=== PATIENT | female | born 1940 | race Caucasian/White ===

== ENCOUNTER 2023-01-17 08:18 | Emergency (ER) | payer MEDICARE, OTHER, SELFPAY ==
[2023-01-17 08:19] VITALS: BP 167/99; PULSE 74; RESP 14; TEMP 36.1; O2SAT 100; BMI 24.9
--- NOTE | 2023-01-17 08:28 | RAD_ITS ---
STUDY: X-RAY - RIGHT SHOULDER REASON FOR EXAM: Female, 83 years old. Shoulder pain following trauma. TECHNIQUE: 4 view(s) of the shoulder. COMPARISON: None. FINDINGS: Normal glenohumeral articulation. There is widening of the AC joint, with displacement of the clavicle, consistent with a Type III acromioclavicular joint separation. Normal acromion. Normal humeral head and visualized proximal humerus. The soft tissue structures are unremarkable. Normal visualized pulmonary apex. RAD/Shoulder min 2 Views IMPRESSION: Type III AC joint separation. Electronically Signed: Dustin Mercado MD at 8:57 EDT ,
--- NOTE | 2023-01-17 08:28 | EDS_ITS ---
HPI History of Present Illness Chief Complaint: Upper Extremity Injury Informant: patient Narrative Narrative: Patient presents with right shoulder pain. Patient was watering some lundy and plants in her garden this morning. She walked twist up to hose when she was done. She states she slipped because of the morning do. She will and and hit her right shoulder. Nothing else hurts. She got herself up and came in. She never hit her head. She is on no ant icoagulation and in fact she is on no medicines. She is very healthy. This was a mechanical slip and fall. This was not syncope. Her only complaint is the right shoulder. It is better with rest and worse with motion. No distal numbness or tingling. PFSH PFSH Allergy/AdvReac Type Severity Reaction Status Date / Time No Known Allergies Allergy Unverified 01/17/23 08:18 Social History Smoking Status: Never smoker ROS ROS ED Eyes Eyes: Denies change in vision Cardiovascular Cardiovascular: Denies chest pain Respiratory/Chest Respiratory/Chest: Denies dyspnea Gastrointestinal Gastrointestinal: Denies nausea or vomiting Musculoskeletal Musculoskeletal: Reports other Details: See history of present illness ; Denies back pain or neck pain Integumentary Denies Abrasions Neurologic Neurologic: Denies paresthesias or weakness Hematologic/Lymphatic Hematologic/Lymphatic: Denies easy bleeding or easy bruising EXAM Physical Exam Narrative Exam Narrative: Patient is awake alert no acute distress sitting comfortably in bed. HEENT shows no sign of trauma at all mucous membranes are moist. Neck is supple has free range of motion and no tenderness Lungs are clear bilaterally no pain with a deep breath. Heart is regular I hear no murmur. Abdomen is soft. Extremities show no obvious deformity. She has some mild tenderness at the proximal humerus over the deltoid. No tenderness further down the arm elbow forearm wrist or hand. Clavicle is nontender. No visible bruising or skin changes at this time. Const Vital Signs: 01/17/23 08:19 Temperature 97 F L Temperature Source Temporal Pulse Rate 74 Respiratory Rate 14 Blood Pressure 167/99 H Blood Pressure Mean 121 Pulse Ox 100 Oxygen Delivery Method Room Air MDM MDM MDM Narrative Medical decision making narrative: Independent interpretation the patient's 4 view x-ray of the right shoulder does appear to show AC separate there is no dislocation of the actual shoulder. There is no fracture seen. Final reading is similar. I explained this to the patient. She will use ice rest and [id number] meds. I think a sling would actually promote more stiffness and problems than it would benefit. She is okay with this plan. We discussed reasons to return and follow-up as needed. Discharge Plan Triage Chief Complaint: Upper Extremity Injury ED Provider: Mahad Rock Dx/Rx/DC Orders Clinical Impression: Fall from slipping, Separation of right acromioclavicular joint, Skin tear of right elbow without complication Instructions: Treatment for Shoulder Separation Primary Care Provider: Susan Lloyd Referrals: Nathan Mcelroy MD [Med Staff - Active Staff] - 10-14 Days if not better Disposition Disposition: Home, Self Care
[2023-01-17 10:18] VITALS: RESP 16
== END 2023-01-17 10:34 | disposition home or self-care (01) ==
PROVIDERS: Emergency Provider Emergency Medicine; PCP Internal Medicine; Visit Provider Emergency Medicine
DX: S43.101A Unspecified dislocation of right acromioclavicular joint, initial encounter (principal); S51.011A Laceration without foreign body of right elbow, initial encounter; W01.0XXA Fall on same level from slipping, tripping and stumbling without subsequent striking against object, initial encounter
CPT/HCPCS: 73030; 99282

== ENCOUNTER 2023-08-24 11:03 | Emergency (ER) | payer MEDICARE, OTHER, SELFPAY ==
[2023-08-24 11:03] VITALS: BP 172/91; PULSE 82; RESP 16; TEMP 36.4; O2SAT 99; BMI 24.7
--- NOTE | 2023-08-24 11:18 | EKG12_ITS ---
Test Reason : CP Blood Pressure : / mmHG Vent. Rate : 072 BPM Atrial Rate : 072 BPM P-R Int : 128 ms QRS Dur : 074 ms QT Int : 400 ms P-R-T Axes : 051 -08 026 degrees QTc Int : 438 ms Normal sinus rhythm Minimal voltage criteria for LVH, may be normal variant ( R in aVL ) Borderline ECG Confirmed by FELICIANO MARIA, CHAVA ([id number]), supervising editor trailer QUOC CANO ([id number]) on 08/26/2023 8:41:38 AM Referred By: NATANAEL/CHIN Confirmed By:CHAVA WIGGINS MD
--- NOTE | 2023-08-24 11:18 | ED.VIS.CHEST ---
HPI History of Present Illness Chief Complaint: Chest Pain Detail of Chief Complaint: Chest pain Informant: patient Narrative Narrative: Patient presents to the emergency department with complaint of chest pain that started around 630 this morning. Patient had gotten up to use the restroom when she noticed what she describes as a pressure in her left chest that may be radiates to her back. Denies radiation to the arm or neck or jaw. She denies shortness of breath. She also states she has had intermittent discomfort lasting short periods of time over the last 2 days. Discomfort does not seem to come on with activity or exertion as she was able to walk 2-1/2 miles yesterday without difficulty. Patient has no heart history. She has no medical problems. Denies family history of heart disease. Patient denies recent travel or surgery. No history of PE or DVT. Currently rates her pain a 4 out of 10. PFSH PFSH Allergy/AdvReac Type Severity Reaction Status Date / Time No Known Allergies Allergy Verified 08/24/23 11:03 Social History Smoking Status: Never smoker ROS ROS ED Review of Systems ROS Unobtainable: other Constitutional Constitutional ED: Reports lethargy; Denies chills, fever(s), sweats or weight loss Eyes Eyes: Denies blurry vision, change in vision or diplopia ENT ENT ED: Denies rhinorrhea or sore throat Cardiovascular Cardiovascular: Reports chest pain; Denies orthopnea or racing heartbeat Respiratory/Chest Respiratory/Chest: Denies cough, dyspnea, dyspnea on exertion, orthopnea or sputum Gastrointestinal Gastrointestinal: Denies abdominal pain, diarrhea, nausea or vomiting Genitourinary Genitourinary ED: Denies dysuria, hematuria or urinary frequency Musculoskeletal Musculoskeletal: Denies arthralgias, back pain, myalgias or neck pain Integumentary Denies abscess, Abrasions or rash Neurologic Neurologic: Denies headache(s) or weakness Psychiatric Psychiatric: Denies anxiety, depression or suicidal thoughts Endocrine Endocrinology: Denies polydipsia, polyphagia or polyuria Hematologic/Lymphatic Hematologic/Lymphatic: Denies easy bleeding, easy bruising or lymphadenopathy Allergic/Immunologic Allergic/Immunologic ED: Denies mouth swelling, tongue swelling or urticaria EXAM Physical Exam Const Vital Signs: 08/24/23 11:03 08/24/23 13:07 08/24/23 13:07 Temperature 97.6 F L Temperature Source Temporal Pulse Rate 82 72 Respiratory Rate 16 Blood Pressure 172/91 H 164/81 H Blood Pressure Mean 118 108 Pulse Ox 99 Oxygen Delivery Method Room Air Room Air Positive well nourished and well developed General Appearance ED: well developed and NAD HEENT Reports TM's clear and moist mucous membranes normocephalic and atraumatic; Negative for trauma or tenderness Tympanic Membrane ED: Yes TM's clear Eyes PERRL and EOMs intact bilaterally General Eye ED: Negative for pale conjunctiva or scleral icterus Neck no lymphadenopathy, supple and no JVD General: Negative for tenderness Chest Wall inspection of chest normal and palpation of chest normal Chest: Negative for tenderness Resp normal respiratory effort and clear to auscultation bilaterally Effort and Inspection: Negative for respiratory distress or pain with movement Auscultation: Negative for rhonchi, wheezes or diminished lung sounds Cardio regular rate, regular rhythm, S1 normal heart sound, S2 normal heart sound and no murmurs Peripheral Pulses: pulses 2+ throughout GI normal to inspection, nondistended, normoactive bowel sounds, soft to palpation, non-tender, non-distended and no masses Back/Spine no CVA tenderness and no thoracic nor lumbar tenderness Extremity normal to inspection General Extremety ED: Negative for edema General Extremity: Negative for edema Neuro oriented x3, CN's II-XII intact bilaterally, no sensory deficits noted and gait normal Sensorium / Orientation: awake, alert, oriented to person, oriented to place and oriented to time Motor Exam: strength 5/5 throughout and strength abnormal Psych mental status grossly normal Skin no rashes or lesions noted and no wounds Heart Score History: Moderately Suspicious ECG: Normal Age: >/= 65 years Risk Factors: No Risk Factors Troponin: </= Normal Limit Score: 3 MDM MDM MDM Narrative Medical decision making narrative: Patient presents with chest discomfort. In the differential would be acute coronary syndrome versus PE or pneumothorax or GI cause. She denies GERD symptoms. IV line will be established. EKG obtained showed a sinus rhythm with a rate of 72 bpm with no acute ST segment changes. Patient will receive aspirin and will give nitroglycerin sublingual tablets. CBC with differential obtained for white count 5.9 with hemoglobin 13.9 and platelet count of 227. Chemistries unremarkable. D-dimer was normal at less than 0.27. First troponin was normal at 5. Delta troponin normal at 6. Heart score was a 3. Had a long discussion with patient and her family members regarding next steps. She is currently pain-free before she was even given any nitro. Discussed admission for stress testing given her age. She preferred to just have the delta troponin and given that she is pain-free to go home. Also reassuring is that she was able to walk 2-1/2 miles yesterday without any pain or discomfort and she is considered low risk for acute coronary syndrome at this time. She is advised to return if increasing pain, exertional dyspnea, or condition should worsen anyway. Lab Data Attestation: I reviewed the patient's lab results. Labs: Laboratory Results - last 24 hr 08/24/23 08/24/23 11:30 13:45 WBC 5.9 RBC 4.97 Hgb 13.9 Hct 43.8 MCV 88.1 MCH 28.0 MCHC 31.7 L RDW Std Deviation 46.5 H RDW Coeff of Ingrid 14.4 Plt Count 227 MPV 9.3 Immature Gran % (Auto) 0.200 Neut % (Auto) 54.3 Lymph % (Auto) 38.9 Morrison % (Auto) 5.6 Eos % (Auto) 0.7 Baso % (Auto) 0.3 Absolute Neuts (auto) 3.2 Absolute Lymphs (auto) 2.30 Nucleated RBC % 0 D-Dimer Quant (PE/DVT) < 0.27 L Sodium 142 Potassium 4.5 Chloride 111 H Carbon Dioxide 28.0 Anion Gap 3 L BUN 19 H Creatinine 1.08 H Estim Creat Clear Calc 31.50 Est GFR (MDRD) Af Amer 62 Est GFR (MDRD) Non-Af 51 L BUN/Creatinine Ratio 17.6 Glucose 99 Calcium 9.0 Troponin I High Sens 5 6 Radiography Diagnostic Testing: Clinical Impression(s) from Imaging Studies Chest X-Ray 08/24/23 11:45 IMPRESSION: Mild upper lobe opacities, which may be secondary to scarring or inflammation. Recommend follow-up. Electronically Signed: Mary Dozier MD at 12:05 EST Reading Location ID and State: [facility] / [place] Tel , Service support , 1 view chest x-ray obtained interpreted by myself as no evidence of infiltrate or pneumothorax or acute disease process. Radiology in agreement. EKG Initial EKG: Attestation: I personally reviewed and interpreted this EKG as follows: Comments: Sinus rhythm with rate 72 bpm with no acute ST segment changes Discharge Plan Triage Chief Complaint: Chest Pain ED Provider: Annabelle Romo Dx/Rx/DC Orders Clinical Impression: Chest pain Instructions: ED Chest Pain, Uncertain Cause Primary Care Provider: Susan Lloyd Referrals: Susan Lloyd MD [Primary Care Provider] - 3-5 Days Disposition Disposition: Home, Self Care Discharge Date/Time: 08/24/23 14:44
--- NOTE | 2023-08-24 11:24 | NURSING ---
NO OLD EKGS
--- NOTE | 2023-08-24 11:26 | NURSING ---
NO OLD EKGS
--- OUTSIDE RECORDS SUMMARY | 2023-08-24 11:31 | XMS RPT_ITS | CCD ---
Author Name Unknown Address [address] [place] [address] Organization [facility] Care Team Providers Care Patient Support Representative Name Role Phone Dilshad Lloyd MD Primary Care Provider DILSHAD LLOYD Primary Care Unavailable DILSHAD LLOYD Attending Unavailable MATHEW US Attending Unavail able DILSHAD LLOYD Primary Care Unavailable MATHEW US Referring Unavail able DILSHAD LLOYD Primary Care Unavailable Medications Completed/Discontinued Medications Medication Drug Class(es) Dates Sig (Normalized) Sig (Original) ascorbic acid 1000 mg oral tablet (6 sources) Vitamin C Start: 12-05-2005 VITAMIN C 1,000 MG TAB Take one(1) tablet daily. 0 12/05/2005 Active Problems Active Problems Problem Classification Problem Date Documented Da te Episodic/Chronic Immunizations and screening for infectious disease (4 sources) Patient encounter status; Translations: [Encounter for immunization] Episodic Past or Other Problems Problem Classification Problem Date Documented Da te Episodic/Chronic Other non-epithelial cancer of skin (6 sources) History of malignant basal cell neoplasm of skin; Translations: [Personal history of other malignant neoplasm of skin] Onset: 07-23-2014 08-14-2021 Episodic Other screening for suspected conditions (not mental disorders or infectious disease) (1 source) Encounter for screening mammogram for malignant neoplasm of breast; Translations: [Encounter for screening mammogram for malignant neoplasm of breast] Onset: 11-20-2022 Episodic Results Test Name Value Interpretation Reference Range Facil ity Vital Signs Date Time Vital Sign Value Performing Clinician Faci lity 11-20-2022 10:44-0400 Body height 161.3 cm Mathew Dominique MD Work Phone: [facility] 11-20-2022 10:44-0400 Body weight 63.91 kg Mathew Dominique MD Work Phone: [facility] 11-20-2022 10:44-0400 Diastolic blood pressure 70 mm[Hg] Mathew Dominique MD Work Phone: [facility] 11-20-2022 10:44-0400 Systolic blood pressure 110 mm[Hg] Mathew Dominique MD Work Phone: [facility] 06-18-2022 09:44-0400 Body height 158 cm Dilshad Lloyd MD Work Phone: [facility] 06-18-2022 09:44-0400 Body weight 63.5 kg Dilshad Lloyd MD Work Phone: [facility] 06-18-2022 09:44-0400 Diastolic blood pressure 82 mm[Hg] Dilshad Lloyd MD Work Phone: [facility] 06-18-2022 09:44-0400 Heart rate 79 /min Dilshad Lloyd MD Work Phone: [facility] 06-18-2022 09:44-0400 SaO2% (BldA) [Mass fraction] 97 % Dilshad Lloyd MD Work Phone: [facility] 06-18-2022 09:44-0400 Systolic blood pressure 124 mm[Hg] Dilshad Lloyd MD Work Phone: [facility] Encounters Encounter Date Encounter Type Care Provider Facility Start: 06-25-2023 End: 06-25-2023 ambulatory DILSHAD LLOYD Facility:[facility] Start: 11-20-2022 End: 11-20-2022 ambulatory Mathew Dominique MD Work Phone: OB/Gynecology Procedures Date Procedure Procedure Detail Performing Clinician Start: 11-20-2022 Screening mammograph y bi 2-view breast inc cad Mathew Dominique MD Work Phone: Start: 06-18-2022 INFLUENZA SEASONAL QUADRIVALENT HIGH DOSE AGE 65+ Dilshad Lloyd MD Work Phone: Plan of Treatment Date Care Activity Detail Author Start: 02-02-2032 Urine microalbumin profile [facility] Start: 05-28-2023 DIABETES SCREEN [facility]EN [facility] Start: 05-28-2023 Diabetes Screening Diabetes Screenin g [facility] Start: 04-19-2023 Covid-19 Vaccine () Covid-19 Vaccine () [facility] Start: 04-19-2023 Influenza vaccination Influenza Vacc ine (#1) [facility] Start: 08-19-2022 ADVANCE DIRECTIVE DISCUSSION ADVANCE DIRECTIVE DISCUSSION [facility] Start: 08-19-2022 DEPRESSION ASSESSMENT DEPRESSION ASS ESSMENT [facility] Start: 08-06-2022 COVID-19 VACCINE (5 - Booster for Pfizer series) COVID-19 VACCINE (5 - Booster for Pfizer series) [facility] Immunizations Immunization Date Immunization Notes Care Provider Fa cility 06-18-2022 influenza, high-dose , quadrivalent vaccine (FLUZONE HIGH DOSE QUADRIVALENT) Dilshad Lloyd MD Work Phone: [facility] 06-18-2022 influenza virus vacc ine, unspecified formulation Screen Wstr [facility] 05-31-2022 zoster vaccine recombinant Dilshad Lloyd MD Work Phone: [facility] Work Phone: 03-27-2022 zoster vaccine recombinant Dilshad Lloyd MD Work Phone: [facility] Work Phone: 02-01-2022 tetanus toxoid, redu kal diphtheria toxoid, and acellular pertussis vaccine, adsorbed Dilshad Lloyd MD Work Phone: [facility] 06-14-2021 influenza, high-dose , quadrivalent vaccine (FLUZONE HIGH DOSE QUADRIVALENT) Dilshad Lloyd MD Work Phone: [facility] 05-26-2019 influenza, high dose seasonal, preservative-free Dilshad Lloyd MD Work Phone: [facility] Work Phone: 05-19-2018 influenza, high dose seasonal, preservative-free Dilshad Lloyd MD Work Phone: [facility] Work Phone: 05-19-2018 pneumococcal conjuga te vaccine, 13 valent Dilshad Lloyd MD Work Phone: [facility] Work Phone: 05-19-2018 Seasonal trivalent influenza vaccine, adjuvanted, preservative free Dilshad Lloyd MD Work Phone: [facility] Work Phone: 07-08-2017 influenza, high dose seasonal, preservative-free Dilshad Lloyd MD Work Phone: [facility] 06-14-2016 influenza, high dose seasonal, preservative-free Dilshad Lloyd MD Work Phone: [facility] Work Phone: 06-09-2015 influenza, high dose seasonal, preservative-free Dilshad Lloyd MD Work Phone: [facility] Work Phone: 06-01-2014 influenza, high dose seasonal, preservative-free Dilshad Lloyd MD Work Phone: [facility] Work Phone: 07-10-2013 influenza virus vacc ine, unspecified formulation Dilshad Lloyd MD Work Phone: [facility] Work Phone: 07-10-2013 zoster vaccine, live Dilshad collins MD Work Phone: [facility] Work Phone: 06-16-2012 pneumococcal polysaccharide vaccine, 23 valent Dilshad Lloyd MD Work Phone: [facility] Work Phone: 06-27-2010 influenza virus vacc ine, unspecified formulation Dilshad Lloyd MD Work Phone: [facility] Work Phone: Payers Date Payer Category Payer Medicare [id number] 2019 Unknown MMO MMO MEDICARE SUPPLEMENT [id number] 2019-Present [phone] [address] [place] [address] Indemnity [id number] 2004 Medicare MEDICARE MEDICAR E A AND B [id number] 2004-Present [phone] [address] [address] [place] [address] Medicare [id number] 2004 Medicare [id number] Social History Date Type Detail Facility Start: 01-30-2011 Tobacco smoking stat us NHIS Never smoked tobacco [facility] Work Phone: Start: 01-30-2011 Tobacco use and exposure Smoke less tobacco non-user [facility] Work Phone: Start: 06-18-2022 End: 11-20-2022 Alcohol intake Current non-drinker of alcohol (finding) [facility] Start: 06-17-2022 History SDOH Alcohol Frequency 1 [facility] Start: 06-17-2022 History SDOH Alcohol Std Drinks 0 [facility] Start: 06-17-2022 History SDOH Social Connections Phone 5 [facility] Start: 06-17-2022 History SDOH Social Connections Quaker 3 [facility] Start: 06-17-2022 History SDOH Transport Med 2 [facility] Start: 1940 Sex Assigned At Not on file [facility] Start: 06-08-2022 End: 07-17-2022 Exposure to SARS-CoV-2 (event) Not sure [facility] Start: 06-17-2022 End: 09-14-2022 History of Social function [facility] Start: 06-17-2022 End: 09-14-2022 Social connection and isolation panel [facility] Do you belong to any clubs or organizations such as adventist groups, unions, fraternal or athletic groups, or school groups? Yes [facility] Are you now , , , , never or living with a partner? [facility] How often to you hav e a drink containing alcohol? Never [facility] How many standard dr inks containing alcohol do you have on a typical day? Patient does not drink [facility] Do you feel stress - tense, restless, nervous, or anxious, or unable to sleep at night because your mind is troubled all the time - these days [OSQ] Not at all [facility] (I/We) worried wheth er (my/our) food would run out before (I/we) got money to buy more. Never true [facility] In the past 12 month s, was there a time when you were not able to pay the mortgage or rent on time? No [facility] Clinical Notes 07-03-2007 to 06-25-2023 Letter - Mammography Coordinator - 11/20/2022 2:15 PM EDTMathew Dominique MD - 11/20/2022 10:40 AM Glenny Pretty RT(R) - 11/20/2022 10:30 AM EDTPatient Instructions Note Date & Type Note Facility 06-25-2023 Note HNO ID: [id number] Author: Dilshad Lloyd MD Service: ? Author Type: Physician Type: Progress Notes Filed: 07/28/2023 3:52 PM Note Text: This note was created using TraceSecurityriter. Subjective Selvin Marks is a 83 year old female. HISTORY Selvin Marks is a 83 year old lady here for yearly exam and follow up appointment. Overall doing well. Hurt right shoulder . Still has good ROM but has lump behind AC joint and told has separation at shoulder. Went to ER for evaluation. Told might go back into place. Continues to follow up with Seema Aquino for dermatology screening. Twice a year. Has living will and HCDPOA--Daughter is HCDPOA Depression Screening PHQ-2 Score 06/25/2023 0 Depression screening tool completed and reviewed. Based on score and interview, patient is not at risk for depression. Screening tool discussed with patient, and I recommended no further intervention at this time. 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 Saravia/Seema Aquino DIVERTICULOSIS OF COLON W/O BLEED 07/03/2007 Diverticulosis of large intestine 07/03/2007 INT HEMORRHOID W/O COMPL 07/03/2007 Osteopenia 12/06/2005 Current Outpatient Medications Medication Sig MV,CA,IRON,MN/FA/CHOL/HUSAM/PABA (BODY, HAIR, SKIN AND NAILS ORAL) Take 1 capsule by mouth once daily. calcium carbonate 600 mg-cholecalciferol 200 units (CALCIUM 600 WITH VITAMIN D3) 600 mg(1,500mg) -200 unit tab Take 1 tablet by mouth twice daily. VITAMIN C 1,000 MG TAB Take one(1) tablet daily. MULTIVITAMIN TAB Take one(1) tablet daily. OTC NUTRITIONAL SUPPLEMENT twice daily. Defense, Oral tablets, Pt takes 2 daily. No current facility-administered medications for this visit. ALLERGIES No Known Allergies FAMILY HISTORY Problem Relation Age of Onset Cancer Mother SKIN Heart Mother CHF Emphysema Father Emphysema Brother Smoker Emphysema Brother Smoker Social History Tobacco Use Smoking status: Never Smokeless tobacco: Never Vaping Use Vaping Use: Never used Substance Use Topics Alcohol use: No Drug use: No Review of Systems Objective BP 128/82 Pulse 72 Temp 36.3 ?C (97.4 ?F) Resp 18 Ht 159 cm (5' 2.6 ) Wt 64.9 kg (143 lb) SpO2 97% BMI 25.66 kg/m? Last 5 Encounter Wt Readings: Date: Wt: 06/25/2023 64.9 kg (143 lb) 11/20/2022 63.9 kg (140 lb 14.4 oz) 06/18/2022 63.5 kg (140 lb) 10/20/2021 65.3 kg (144 lb) 07/10/2021 65.3 kg (144 lb) No waist measurement recorded Estimated body mass index is 25.66 kg/m? as calculated from the following: Height as of this encounter: 159 cm (5' 2.6 ). Weight as of this encounter: 64.9 kg (143 lb). Last 5 Encounter BP Readings: Date: BP: 06/25/2023 128/82 11/20/2022 110/70 06/18/2022 124/82 10/20/2021 116/70 07/10/2021 122/74 Physical Exam Vitals reviewed. Constitutional: Appearance: Normal appearance. She is well-developed. HENT: Head: Normocephalic and atraumatic. Right Ear: External ear normal. Left Ear: External ear normal. Nose: Nose normal. Eyes: Conjunctiva/sclera: Conjunctivae normal. Neck: Thyroid: No thyromegaly. Vascular: No carotid bruit. Cardiovascular: Rate and Rhythm: Normal rate and regular rhythm. Pulses: Normal pulses. Heart sounds: Normal heart sounds. No murmur heard. No friction rub. No gallop. Pulmonary: Effort: Pulmonary effort is normal. Breath sounds: Normal breath sounds. Abdominal: General: Bowel sounds are normal. There is no distension. Palpations: Abdomen is soft. There is no mass. Tenderness: There is no abdominal tenderness. Musculoskeletal: General: No deformity. Normal range of motion. Comments: Lump behind right AC joint Lymphadenopathy: Cervical: No cervical adenopathy. Skin: General: Skin is warm and dry. Coloration: Skin is not jaundiced or pale. Findings: No rash. Neurological: General: No focal deficit present. Mental Status: She is alert and oriented to person, place, and time. Cranial Nerves: No cranial nerve deficit. Sensory: No sensory deficit. Motor: No abnormal muscle tone. Coordination: Coordination normal. Deep Tendon Reflexes: Reflexes normal. Psychiatric: Mood and Affect: Mood normal. Behavior: Behavior normal. Thought Content: Thought content normal. Judgment: Judgment normal. Assessment and Plan Encounter Diagnosis ICD-10-CM 1. Injury of right shoulder, sequela S49.91XS Noted lump behind shoulder and was told has separation in shoulder . Good ROM still.Monitor for now.Ortho or PT consult as indicated 2. History of basal cell carcinoma of skin Z85.828 Continues to follow up with dermatology twice yearly. 3. Encounter for immunization Z23 INFLUENZA VACCINE, PRSV FREE, AGE 65+ YR, HIGH DOSE, QUADRIVALENT (FLUZONE HIGH-DOSE) 4. Colon cancer screening Z12.11 COLOGUARD Above issues addressed with patient. Patient involved in shared decisio (more content not included)... [facility] 11-20-2022 Miscellaneous Notes November 21, 2022 PID: [id number] Selvin Marks [facility] [place] [address] Dear Aleahkenyon, We are pleased to inform you that the results of your recent breast imaging exam on 11/20/2022 are normal. Early detection of cancer is very important. We also understand recommendations regarding breast cancer screening are controversial. Please discuss with your primary care provider which strategy is best for you and whether a mammogram is right for you. Your imaging studies and report will be kept on file at [facility] as part of your permanent medical record and are available for your continuing care. Thank you for allowing us to help in meeting your health care needs. Sincerely, Dr. Kebede Interpreting Radiologist [facility] (Normal over 40) documented in this encounter [facility] 11-20-2022 Note HNO ID: [id number] Author: Mathew Dominique MD Service: ? Author Type: Physician Type: Progress Notes Filed: 11/20/2022 12:11 PM Note Text: Inspector Paper Products offered: Patient declines. Cruz is a 82 year old who presents for an annual gynecologic exam without complaints. Lost in July- 63 yrs. Recently back from [place] with family for wedding. Postmenopausal: Yes HRT use: No. Last Pap: 02/01/2009 normal HPV: 01/26/2009 negative History of abnormal pap: No Last mammogram: 2022 pending today History of abnormal mammogram: No Sexually active: No History of STDS: None Hot flashes: occasional Night sweats: occasional Vaginal dryness: No Exercise: active- routine walking Diet: balaNCED OB History T1 L2 SAB1 IAB0 Ectopic0 Multiple0 Live Births0 Therapy Assistant History LMP: Postmenopausal Age at Menarche: Age at First : Age at Menopause: Therapy Assistant History Comments: Sexual Activity: Not Currently; No partner data on record; Postmenopausal Contraception: No contraception data on record PAST MEDICAL HISTORY Diagnosis Date 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 No bloating, early satiety, indigestion, or increased flatulence. Bladder: No dysuria, gross hematuria, urinary frequency, urinary urgency, or incontinence Breast: No breast lumps, nipple d/c, overlying skin changes, redness or skin retraction Allergies and current medication updated:Yes EXAM: BP 110/70 Ht 5' 3.5 (1.61m) Wt 140 lb 14.4 oz (63.9kg) BMI 24.56 kg/(m2). GENERAL: pleasant, female in no apparent distress HEENT: Normocephalic, atraumatic, mucus membranes moist, and no lesions NECK: Supple, full range of motion, no adenopathy, and thyroid normal DERMATOLOGY: Normal, without lesions, non-icteric, and non-hirsute BREAST: soft, non-tender, symmetric, no dominant mass, normal nipple-areolar complex, no lymphadenopathy, and no nipple discharge ABDOMEN: soft, non-tender, and no masses PELVIC: external genitalia normal, normal Bartholin's glands, urethra, Owend[place]'s glands, no vulvar lesions, no cervical lesions, good vaginal support, physiologic discharge present, normal appearing perineal body and perianal region BIMANUAL: uterus normal size, shape and consistency, no adnexal masses, and non-tender RECTOVAGINAL: deferred. NEURO: alert and oriented x3,exam grossly non-focal EXTREMITIES: normal ASSESSMENT/PLAN: 1) Health maintenance: Pap/HPV screening no longer needed Mammogram ordered Mammogram up to date Nutrition, exercise and routine health maintenance exams reviewed. Calcium/Vitamin D supplementation information provided. Colon cancer screening: up to date with screening BMD: up to date 2) Follow up one year or sooner as needed Mathew Ramirez MD [facility] 11-20-2022 Note HNO ID: [id number] Author: RT Catalina(R) Service: ? Author Type: Technologist Type: Progress Notes Filed: 11/20/2022 10:20 AM Note Text: Radiology Service Progress Note PATIENT NAME: Selvin Marks DATE OF SERVICE: November 20, 2022 TIME: 10:18 AM PATIENT IDENTITY VERIFICATION COMPLETED USING TWO (2) IDENTIFIERS: Name and Date of confirmed by patient verbally. FALL SCREENING: Has the patient had 2 falls in the last year or 1 fall with injury or currently using an Ambulatory Assistive Device (Walker, Cane, Wheelchair, Crutches, etc.)? No PATIENT GENDER DATA: Female. status: : No status: NO. PATIENT RELEVANT IMPLANT DATA REVIEWED: Not Applicable RADIOLOGY DEPARTMENT: Mammography PERIPHERAL IV DATA: Not applicable SIGNED BY: RT Catalina(R) November 20, 2022 10:18 AM [facility] 11-20-2022 History of Presen t illness Narrative Inspector Paper Products offered: Patient declines. Selvin is a 82 year old who presents for an annual gynecologic exam without complaints. Lost in July- 63 yrs. Recently back from [place] with family for wedding. Postmenopausal: Yes HRT use: No. Last Pap: 02/01/2009 normal HPV: 01/26/2009 negative History of abnormal pap: No Last mammogram: 2022 pending today History of abnormal mammogram: No Sexually active: No History of STDS: None Hot flashes: occasional Night sweats: occasional Vaginal dryness: No Exercise: active- routine walking Diet: balaNCED OB History T1 L2 SAB1 IAB0 Ectopic0 Multiple0 Live Births0 Therapy Assistant History LMP: Postmenopausal Age at Menarche: Age at First : Age at Menopause: Therapy Assistant History Comments: Sexual Activity: Not Currently; No partner data on record; Postmenopausal Contraception: No contraception data on record PAST MEDICAL HISTORY Diagnosis Date 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 No bloating, early satiety, indigestion, or increased flatulence. Bladder: No dysuria, gross hematuria, urinary frequency, urinary urgency, or incontinence Breast: No breast lumps, nipple d/c, overlying skin changes, redness or skin retraction Allergies and current medication updated:Yes EXAM: BP 110/70 Ht 5' 3.5 (1.61m) Wt 140 lb 14.4 oz (63.9kg) BMI 24.56 kg/(m^2). GENERAL: pleasant, female in no apparent distress HEENT: Normocephalic, atraumatic, mucus membranes moist, and no lesions NECK: Supple, full range of motion, no adenopathy, and thyroid normal DERMATOLOGY: Normal, without lesions, non-icteric, and non-hirsute BREAST: soft, non-tender, symmetric, no dominant mass, normal nipple-areolar complex, no lymphadenopathy, and no nipple discharge ABDOMEN: soft, non-tender, and no masses PELVIC: external genitalia normal, normal Bartholin's glands, urethra, [place]end[place]'s glands, no vulvar lesions, no cervical lesions, good vaginal support, physiologic discharge present, normal appearing perineal body and perianal region BIMANUAL: uterus normal size, shape and consistency, no adnexal masses, and non-tender RECTOVAGINAL: deferred. NEURO: alert and oriented x3,exam grossly non-focal EXTREMITIES: normal ASSESSMENT/PLAN: 1) Health maintenance: Pap/HPV screening no longer needed Mammogram ordered Mammogram up to date Nutrition, exercise and routine health maintenance exams reviewed. Calcium/Vitamin D supplementation information provided. Colon cancer screening: up to date with screening BMD: up to date 2) Follow up one year or sooner as needed Mathew Ramirez MD documented in this encounter [facility] 11-20-2022 History of Presen t illness Narrative Radiology Service Progress Note PATIENT NAME: Selvin Marks DATE OF SERVICE: November 20, 2022 TIME: 10:18 AM PATIENT IDENTITY VERIFICATION COMPLETED USING TWO (2) IDENTIFIERS: Name and Date of confirmed by patient verbally. FALL SCREENING: Has the patient had 2 falls in the last year or 1 fall with injury or currently using an Ambulatory Assistive Device (Walker, Cane, Wheelchair, Crutches, etc.)? No PATIENT GENDER DATA: Female. status: : No status: NO. PATIENT RELEVANT IMPLANT DATA REVIEWED: Not Applicable RADIOLOGY DEPARTMENT: Mammography PERIPHERAL IV DATA: Not applicable SIGNED BY: RT Catalina(R) November 20, 2022 10:18 AM documented in this encounter [facility] 07-19-2022 Miscellaneous Notes Patient notified of results and provider's instructions. Patient verbalizes understanding. Katie Tim LPN ----- Message from Dilshad Lloyd MD sent at 07/18/2022 7:31 PM EST ----- Let patient know test negative. documented in this encounter [facility] 06-18-2022 Instructions Dilshad Lloyd MD - 06/18/2022 10:40 AM EDT Screening schedule The following prevention plan is recommended: ADVANCE DIRECTIVE DISCUSSION Never done DEPRESSION ASSESSMENT Never done INFLUENZA(1) due on 04/19/2022 WHAT YOU CAN DO TO PREVENT FALLS Many falls can be prevented. By making some changes, you can lower your chances of falling. Four things YOU can do to prevent falls for you* and your caregiver 1. Begin a regular exercise program Exercise is one of the most important ways to lower your chances of falling. It makes you stronger and helps you feel better. Exercises that improve balance and coordination (like Mario Laberto Chi) are the most helpful. Lack of exercise leads to weakness and increases your chances of falling. Ask your doctor or health care provider about the best type of exercise program for you. 2. Have your health care provider review your medicines Have your doctor or pharmacist review all the medicines you take, even [id number] medicines. As you get older, the way medicines work in your body can change. Some medicines, or combinations of medicines, can make you sleepy or dizzy and can cause you to fall. 3. Have your vision checked Have your eyes checked by an eye doctor at least once a year. You may be wearing the wrong glasses or have a condition like glaucoma or cataracts that limits your vision. Poor vision can increase your chances of falling. 4. Make your home safer About half of all falls happen at home. To make your home safer: Remove things you can trip over (like papers, books, clothes, and shoes) from stairs and places where you walk. Remove small throw rugs or use double-sided tape to keep the rugs from slipping. Keep items you use often in cabinets you can reach easily without using a step stool. Have grab bars put in next to your toilet and in the tub or shower. Use non-slip mats in the bathtub and on shower floors. Improve the lighting in your home. As you get older, you need brighter lights to see well. Hang light-weight curtains or shades to reduce glare. Have handrails and lights put in on all staircases. Wear shoes both inside and outside the house. Avoid going barefoot or wearing slippers. For more information, contact: Centers for Disease Control and Prevention www.cdc.gov/injury * This information may not apply if you have certain medical conditions. documented in this encounter [facility] 06-18-2022 History of Presen t illness Narrative Selvin Marks is a 82 year old female here for a Medicare Subsequent Annual Wellness Visit Health Risk Assessment In general, health is: Excellent Concerns with tiredness, difficulties with sexual function, balance, teeth/dentures: Not at all [place] anxious, stressed, angry, irritable, lonely, isolated, or had thoughts of hurting themself: Not at all Has little interest or pleasure in doing things: Not at all Bothered by feeling down, depressed, or hopeless: Not at all Needs help with grocery shopping, cooking, housework, bathing, grooming, dressing, eating, sitting or standing, walking, using the toilet, handling finances, taking medications, using the telephone, or driving: No Following safety precautions in the home environment and vehicle: removed throw rugs from floors, installed grab bars in the bathroom, handrails in stairwells, having adequate lighting, wearing seatbelt at all times?: Yes Smokes cigarettes, vapes, or chew tobacco: No Eats healthy foods including fruits, vegetables, whole grains, and fiber-rich foods: More than half the days Number of days per week engages in exercise: 5 days Average alcohol consumption: Never Current Providers Patient Care Team: Dilshad Lloyd MD as PCP - General (Internal Medicine) Specialists: I have reviewed specialist-related care of the patient in the medical record. and Outside specialists seen: Dr. Saravia ([facility]) --dermatology Dr. Gonzalez ([facility])--Ophthalmology Medical/Family history review Reviewed and updated problem list, medical history, surgical history, family history, social history, medication list, and allergies. Opioid use review Patient is not currently using opioids. Depression screening Depression Screening PHQ-2 Score 09/23/2018 0 Depression screening tool completed and reviewed. Based on score and interview, patient is not at risk for depression. Screening tool discussed with patient, and I recommended no further intervention at this time. Cognitive screening Mini Cog Score: 3 Cognitive screening reviewed and no further action needed (score 3-5) Functional Observation Was the patient's timed Up & Go test unsteady or longer than 30 seconds? No Advance Care Planning End of Life planning discussed, including patient's advanced directive wishes: Yes Does have--dtr Irma Means is HCDPOA. Will drop off copy Measurements BP 124/82 Pulse 79 Ht 5' 2.205 (1.58m) Wt 140 lb (63.5kg) SpO2 97% BMI 25.44 kg/(m^2). Last 5 Encounter Wt Readings: Date: Wt: 06/18/2022 63.5 kg (140 lb) 10/20/2021 65.3 kg (144 lb) 07/10/2021 65.3 kg (144 lb) 06/14/2021 64.4 kg (142 lb) 10/18/2020 65.8 kg (145 lb) No waist measurement recorded Estimated body mass index is 25.44 kg/m as calculated from the following: Height as of this encounter: 158 cm (5' 2.21 ). Weight as of this encounter: 63.5 kg (140 lb). Last 5 Encounter BP Readings: Date: BP: 06/18/2022 124/82 10/20/2021 116/70 07/10/2021 122/74 06/14/2021 118/80 10/18/2020 142/84 Visual acuity: follows with optometry/ophthalmology Hearing Evaluation: within normal limits Assessment/Plan - Counseled on healthy diet and regular exercise - Fall avoidance - Colorectal cancer screening recommended - agrees to Colonoscopy--not at this time though given issues with so will do IFOBT this time - Mammogram recommended and ordered by [facility] Additional Concerns The following concerns were also discussed with the patient: Follows with Seema Aquino newsagent. Recent biopsies done--hand and leg. Concerning for cancer on leg and waiting for results of biopsy. Had prior basal cell cancer. Noted some stressors with just recently diagnosed with recurrence of cancer and Hospice was consulted. Reason putting off things like colonoscopy. Does have her kain, family and friends to help her but not sure if shares her kain. PHYSICAL EXAM BP 124/82 Pulse 79 Ht 158 cm (5' 2.21 ) Wt 63.5 kg (140 lb) SpO2 97% BMI 25.44 kg/m GENERAL: well appearing, alert, in no acute distress CARDIOVASCULAR: Regular rate and rhythm. No murmur, rubs or gallops. PULMONARY: clear to auscultation, no wheezing, rhonchi, or crackles ABDOMEN: soft, non-tender, non-distended, no masses or organomegaly EXTREMITY: no lower extremity edema. No skin discoloration. ASSESSMENT/PLAN: 1. Medicare annual wellness visit, subsequent - ICD9: V70.0, ICD10: Z00.00 (primary diagnosis) - Counseled on healthy diet and regular exercise - Calcium intake with supplements or by diet of 1000 mg/day for under 50, 6812-0200 mg/day for 50+ - Colorectal cancer screening recommended - agrees to iFOBT testing - Mammogram ordered - exam recommended once yearly--already ordered as noted above. October 2022 next one due. 2. Encounter for immunization - ICD9: V03.89, ICD10: Z23 - INFLUENZA SEASONAL QUADRIVALENT HIGH DOSE AGE 65+ 3. Colon cancer screening - ICD9: V76.51, ICD10: Z12.11 - FECAL OCCULT BLOOD TEST Dilshad Lloyd MD documented in this encounter [facility] documented as of this encounter (statuses as of 06/18/2022) [facility] History of Past illness Narrative* Problem Noted Date Resolved Date Diverticulosis of large intestine 07/03/2007 07/03/2016 Internal hemorrhoids without mention of complica tion 07/03/2007 07/23/2014 Osteopenia 12/06/2005 07/08/2017 Overview: Normal bone density 2016 documented as of this encounter (statuses as of 07/19/2022) [facility] History of Past illness Narrative* Problem Noted Date Resolved Date Diverticulosis of large intestine 07/03/2007 07/03/2016 Internal hemorrhoids without mention of complica tion 07/03/2007 07/23/2014 Osteopenia 12/06/2005 07/08/2017 Overview: Normal bone density 2016 documented as of this encounter (statuses as of 11/20/2022) [facility] History of Past illness Narrative* Problem Noted Date Resolved Date Diverticulosis of large intestine 07/03/2007 07/03/2016 Internal hemorrhoids without mention of complica tion 07/03/2007 07/23/2014 Osteopenia 12/06/2005 07/08/2017 Overview: Normal bone density 2016 documented as of this encounter (statuses as of 11/21/2022) [facility] History of Past illness Narrative* Problem Noted Date Resolved Date Diverticulosis of large intestine 07/03/2007 07/03/2016 Internal hemorrhoids without mention of complica tion 07/03/2007 07/23/2014 Osteopenia 12/06/2005 07/08/2017 Overview: Normal bone density 2016 documented as of this encounter (statuses as of 11/22/2022) [facility] History of Past illness Narrative* Problem Noted Date Diagnosed Date Resolved Date Diverticulosis of large intestine 07/03/2007 07/03/2016 Internal hemorrhoids without mention of complication 07/03/2007 07/23/2014 Osteopenia 12/06/2005 07/08/2017 Overview: Normal bone density 2016 documented as of this encounter (statuses as of 06/23/2023) [facility] Medicare annual wellness visit, subsequent- Primary Routine general medical examination at a health care facility Encounter for immunization Need for other specified prophylactic vaccination against single bacterial disease Colon cancer screening Special screening for malignant neoplasms, colon [facility] Diagnosis Encounter for gynecological examination (general) (routine) without abnormal findings- Primary Encounter for screening mammogram for breast cancer [facility] Diagnosis Encounter for screening mammogram for malignant neoplasm of breast Other screening mammogram [facility] Diagnostic Procedure Only (Routine) - Authorized Specialty Diagnoses / Procedures Referred By Contnora t Referred To Contact [facility] Diagnoses Encounter for screening mammogram for breast cancer Procedures KORINA SCREENING SCREENING MAMMOGRAPHY BI 2-VIEW BREAST INC CAD Mathew Us MD [address] [place] [address] [facility] [address] [place] [address] Referral ID Status Reason Start Date Expiration Date Visits Requested Visits Authorized [id number] Authorized Auto-Generat ed Referral 11/20/2022 12/20/2023 1 1 [facility] for referral (narrative)* Diagnostic Procedure Only (Routine) - Closed Specialty Diagnoses / Procedures Referred By Shady t Referred To Contact [facility] Diagnoses Encounter for screening mammogram for malignant neoplasm of breast Procedures KORINA SCREENING SCREENING MAMMOGRAPHY BI 2-VIEW BREAST INC CAD Mathew Us MD [address] [place] [address] [facility] [address] [place] [address] Referral ID Status Reason Start Date Expiration Date V isits Requested Visits Authorized [id number] Closed Auto-Generate d Referral 10/16/2022 11/14/2023 1 1 T [facility] for visit Narrative* Diagnostic Procedure Only (Routine) - Closed Specialty Diagnoses / Procedures Referred By Shady hogan Referred To Contact [facility] Diagnoses Encounter for screening mammogram for malignant neoplasm of breast Procedures KORINA SCREENING SCREENING MAMMOGRAPHY BI 2-VIEW BREAST INC CAD Mathew Us MD [address] [place] [address] [facility] [address] [place] [address] Referral ID Status Reason Start Date Expiration Date V isits Requested Visits Authorized [id number] Closed Auto-Generate d Referral 10/16/2022 11/14/2023 1 1 [facility] Summary Purpose Family History No Family History Records Found Advance Directives No Advanced Directives Records Found Additional Source Comments Source Comments (unrecognize d section and content) In the event this informatio n is protected by the Federal Confidentiality of Alcohol and Drug Abuse Patient Records regulations: The Federal rules restrict any use of the information to criminally investigate or prosecute any alcohol or drug abuse patient.[facility] the event this information is protected by the Federal Confidentiality of Alcohol and Drug Abuse Patient Records regulations: The Federal rules restrict any use of the information to criminally investigate or prosecute any alcohol or drug abuse patient.[facility] the event this information is protected by the Federal Confidentiality of Alcohol and Drug Abuse Patient Records regulations: The Federal rules restrict any use of the information to criminally investigate or prosecute any alcohol or drug abuse patient.[facility] the event this information is protected by the Federal Confidentiality of Alcohol and Drug Abuse Patient Records regulations: The Federal rules restrict any use of the information to criminally investigate or prosecute any alcohol or drug abuse patient.[facility] the event this information is protected by the Federal Confidentiality of Alcohol and Drug Abuse Patient Records regulations: The Federal rules restrict any use of the information to criminally investigate or prosecute any alcohol or drug abuse patient.[facility] the event this information is protected by the Federal Confidentiality of Alcohol and Drug Abuse Patient Records regulations: The Federal rules restrict any use of the information to criminally investigate or prosecute any alcohol or drug abuse patient.[facility] Reason for Visit (unrecogniz ed section and content) Reason Comments Results Reason Comments [facility] Care Teams (unrecognized sec tion and content) Patient Support Representative Relationship Specialty Start Date End Date Dilshad Lloyd MD [address] [place] [address] PCP - General Internal Medicine 07/03/16 Patient Support Representative Relationship Specialty Start Date End Date Dilshad Lloyd MD [address] [place] [address] PCP - General Internal Medicine 07/03/16 Patient Support Representative Relationship Specialty Start Date End Date Dilshad Lloyd MD [address] [place] [address] PCP - General Internal Medicine 07/03/16 Patient Support Representative Relationship Specialty Start Date End Date Dilshad Lloyd MD [address] [place] [address] PCP - General Internal Medicine 07/03/16 Patient Support Representative Relationship Specialty Start Date End Date Dilshad Lloyd MD [address] [place], [place] [id number] PCP - General Internal Medicine 07/03/16 INFORMATION SOURCE (unrecogn ized section and content) FOR RECORDS PERTAINING TO PATIENTS WHO ARE OR HAVE BEEN ENROLLED IN A CHEMICAL DEPENDENCY/SUBSTANCEABUSE PROGRAM, SOME INFORMATION MAY BE OMITTED. This clinical summary was aggregated from multiple sources. Caution should be exercised in using it in the provision of clinical care. This summary normalizes information from multiple sources, and as a consequence, information in this document may materially change the coding, format and clinical context of patient data. In addition, data may be omitted in some cases. CLINICAL DECISIONS SHOULD BE BASED ON THE PRIMARY CLINICAL RECORDS. [employer] provides no warranty or guarantee of the accuracy or completeness of information in this document.
[2023-08-24 11:42] LABS: Absolute Neutrophil Count 3.2 X10^3/uL (2.0-7.7); Basophil# 0.02 X10^3/uL; Basophil% 0.3 % (0-1); Eosinophil# 0.04 X10^3/uL; Eosinophils% 0.7 % (0-5); Hematocrit 43.8 % (37-47); Hemoglobin 13.9 g/dL (12.0-15.0); Lymphocyte % 38.9 % (19-41); Mean Corp Hgb Conc 31.7 g/dL (32-36); Mean Corpuscular Volume 88.1 fL (81-99); Mean Platelet Vol. 9.3 fl (6.2-12.0); Monocyte# 0.33 X10^3/uL; Monocyte% 5.6 % (0-10); NRBC Flagged by Analyzer 0 % (0-5); Neutrophil # 3.22 X10^3/uL (2.7-7.7); Neutrophil % 54.3 % (47-70); Platelet Count 227 K/mm3 (150-450); RBC Distribution Width CV 14.4 % (11.6-14.6); RBC Distribution Width SD 46.5 fl (35.1-43.9); Red Blood Count 4.97 M/mm3 (4.2-5.4); White Blood Count 5.9 K/mm3 (4.4-11.0)
--- NOTE | 2023-08-24 11:45 | RAD_ITS ---
HISTORY: chest pain. TECHNIQUE: XR Chest 1 View. COMPARISON: None. FINDINGS: CARDIOMEDIASTINAL BORDERS: Cardiac silhouette within normal limits in size. Mediastinal contour unremarkable with calcification of the aortic knob. LUNGS: Faint upper lobe opacities adjacent to the medial scapular borders. PLEURA: No pleural effusion or pneumothorax seen. OSSEOUS STRUCTURES: Mild degenerative change. Old right third rib fracture. RAD/Chest 1 View (Portable) IMPRESSION: Mild upper lobe opacities, which may be secondary to scarring or inflammation. Recommend follow-up. Electronically Signed: Mary Dozier MD at 12:05 EST ,
[2023-08-24 11:56] LABS: D-Dimer Quantitative (DVT/PE) < 0.27 FEU/ug/m (0.27-0.49)
[2023-08-24] MEDS: Aspirin 81 MG TAB.CHEW 324 MG PO (11:58)
[2023-08-24] MEDS: 0.9% Normal Saline (1000mL) 1,000 ML 150 ML IV (11:58)
[2023-08-24 12:00] LABS: Anion Gap 3 (5-15); BUN 19 mg/dL (7-18); BUN/Creat Ratio 17.6 RATIO (10-20); Chloride 111 mmol/L (98-107); Creatinine, Serum 1.08 mg/dL (0.55-1.02); EST Glomerular Filtration Rate 51 mL/min (>60); Est Glom Filt Rate - Afr Amer 62 mL/min (>60); Glucose 99 mg/dL (74-106); Potassium 4.5 mmol/L (3.5-5.1); Sodium Level 142 mmol/L (136-145); Troponin-I HS (w/2H Reflex) 5 pg/mL (3.0-54.0)
[2023-08-24 13:07] VITALS: BP 164/81; PULSE 72
[2023-08-24 13:37] LABS: Reflex Troponin-HS? (from REC) Y
[2023-08-24 14:09] LABS: Troponin-I HS 6 pg/mL (3.0-54.0)
== END 2023-08-24 14:44 | disposition home or self-care (01) ==
PROVIDERS: Emergency Provider Emergency Medicine; PCP Internal Medicine; Visit Provider Emergency Medicine
DX: R07.9 Chest pain, unspecified (principal)
CPT/HCPCS: 71045; 80048; 84484; 85025; 85379; 93005; 96360; 96361; 99283; J7030; A4216